=== PATIENT | female | born 1970 | race Caucasian/White ===

== ENCOUNTER 2017-11-21 16:22 | Emergency (ER) | payer MEDICAID ==
[~2017-11-21] VITALS: Ht 162.6 cm; Wt 59.0 kg
[2017-11-21 16:22] VITALS: BP 105/69
--- NOTE | 2017-11-21 16:50 | NUR ---
MARYSOL Aquino at [facility] for eval.
--- NOTE | 2017-11-21 17:13 | NUR ---
urine sent to lab
== END 2017-11-21 18:53 | disposition home or self-care (01) ==
LOC: ER 16:26
DX: L03.116 Cellulitis of left lower limb (principal); F19.10 Other psychoactive substance abuse, uncomplicated; F17.200 Nicotine dependence, unspecified, uncomplicated; Z86.11 Personal history of tuberculosis; Z59.0 Homelessness; Z60.2 Problems related to living alone
CPT/HCPCS: 71045; 84703; 99285; A4606; Z7610